=== PATIENT | male | born 1985 | race African-American/Black ===

== ENCOUNTER 2018-01-02 11:52 | Emergency (ER) | payer BC ==
[2018-01-02] MEDS ORDERED: Ondansetron INJ* 2 MG/ML VIAL IV ONE (13:01)
[2018-01-02] MEDS ORDERED: NS 0.9% 1000 ML* 2,000 ML IV ONE (13:01)
[2018-01-02] MEDS ORDERED: Ketorolac INJ* 30 MG/ML 1 ML VIAL IV PUSH ONE (13:01)
--- NOTE | 2018-01-02 13:05 | ED ---
Nausea/Vomiting/Diarrhea HPI - HPI Summary HPI Summary: 32-year-old male presents with diarrhea for the past 2 weeks. He states he has history of IBS. He states that today he started developing pain in his left lower quadrant and right side. He admits to nausea and vomiting. He has had his gallbladder and appendix removed. He history of GI issues. He was recently on a dose of penicillin for gonorrhea. He denies any pain with urination. He denies any flank pain. He denies any fever. Denies any cough. He denies any chest pain or shortness breath. He tried some Pepto-Bismol without relief. He has never had this pain before. He states the pain is constant but then it will get worse with sharp pain in his left lower quadrant. He states he did have bloody stools occasionally when it started. Blood stools has since resolved. patient drinks 4 times a week. - History of Current Complaint Chief Complaint: EDAbdPain Stated Complaint: ABD PAIN/NAUSEA Time Seen by Provider: 01/02/18 12:54 Pain Intensity: 9 - Allergies/Home Medications Allergies/Adverse Reactions: Allergies Allergy/AdvReac Type Severity Reaction Status Date / Time oxycodone Allergy Intermediate Itching Verified 01/02/18 13:05 PMH/Surg Hx/FS Hx/Imm Hx Endocrine/Hematology History: Denies: Hx Diabetes Cardiovascular History: Denies: Hx Hypertension, Hx Pacemaker/ICD History: Denies: Hx Renal Disease Musculoskeletal History: Reports: Other Musculoskeletal History - neck pain Sensory History: Denies: Hx Hearing Aid Neurological History: Reports: Other Neuro Impairments/Disorders - PAIN CLINIC PATIENT Psychiatric History: Reports: Hx Anxiety, Hx Depression, Hx Bipolar Disorder Denies: Hx Eating Disorder, Hx Panic Disorder - Surgical History Surgery Procedure, Year, and Place: APPENDECTOMY. CHOLECYSTECTOMY Infectious Disease History: No Infectious Disease History: Denies: History Other Infectious Disease, Traveled Outside the [place] in Last 30 Days - Family History Known Family History: Negative: Cardiac Disease, Hypertension, Blood Disorder - Social History Alcohol Use: Socially Substance Use Type: Reports: None Smoking Status (MU): Current Some Day Smoker Type: Cigarettes Amount Used/How Often: smokes socially, some days Have You Smoked in the Last Year: Yes Review of Systems Negative: Fever Negative: Chest Pain Negative: Shortness Of Breath Positive: Abdominal Pain, Vomiting, Diarrhea, Nausea All Other Systems Reviewed And Are Negative: Yes Physical Exam Triage Information Reviewed: Yes Vital Signs On Initial Exam: Initial Vitals Temp Pulse Resp BP Pulse Ox 97.8 F 72 20 151/93 99 01/02/18 12:06 01/02/18 12:06 01/02/18 12:06 01/02/18 12:06 01/02/18 12:06 Vital Signs Reviewed: Yes Appearance: Positive: Well-Appearing Skin: Positive: Warm, Dry Head/Face: Positive: Normal Head/Face Inspection Eyes: Positive: Normal, EOMI, ABDI, Conjunctiva Clear ENT: Positive: Normal ENT inspection, Pharynx normal, TMs normal Respiratory/Lung Sounds: Positive: Clear to Auscultation, Breath Sounds Present Cardiovascular: Positive: Normal, RRR Abdomen Description: Positive: Soft, Other: - diffuse tenderness greatest in LLQ Bowel Sounds: Positive: Present Musculoskeletal: Positive: Normal Neurological: Positive: Normal Psychiatric: Positive: Normal Diagnostics - Vital Signs Vital Signs Temp Pulse Resp BP Pulse Ox 01/02/18 12:06 97.8 F 72 20 151/93 99 - Laboratory Result Diagrams: 01/02/18 13:25 01/02/18 13:25 Lab Statement: Any lab studies that have been ordered have been reviewed, and results considered in the medical decision making process. - CT abd CT Interpretation: No Acute Changes - IMPRESSION: 1. NO EVIDENCE FOR ACUTE FINDING OR CAUSE FOR THE PATIENT'S ABDOMINAL PAIN IS SEEN. 2. POSSIBLE SOLID LESION WITHIN THE RIGHT KIDNEY VERSUS A COMPLEX CYST. RECOMMEND AN OUTPATIENT RENAL ULTRASOUND FOR FURTHER EVALUATION. 3. STATUS POST CHOLECYSTECTOMY AND APPENDECTOMY. CT Interpretation Completed By: Radiologist Re-Evaluation - Re-Evaluation First Eval Re-Evaluation Time: 15:02 Change: Improved Comment: pain is a little better but still diffusely present but seems to be more periumbilical now Naus/Vom/Diarrhea Course/Dx - Course Course Of Treatment: 32-year-old male presents with diarrhea for the past 2 weeks. He states he has history of IBS. He states that today he started developing pain in his left lower quadrant and right side. He admits to nausea and vomiting. He has had his gallbladder and appendix removed. He history of GI issues. He was recently on a dose of penicillin for gonorrhea. He denies any pain with urination. He denies any flank pain. He denies any fever. Denies any cough. He denies any chest pain or shortness breath. He tried some Pepto-Bismol without relief. He has never had this pain before. He states the pain is constant but then it will get worse with sharp pain in his left lower quadrant. He states he did have bloody stools occasionally when it started. Blood stools has since resolved. on exam tenderness diffuse tenderness greatest in LLQ. labs wbc normal. CT normal. lipase elevated but not 3 times upper limit. told to stop drinking and follow up with primary. will treat as potential pancreatatis with pain control and clear liquids until symptoms improve. patient understand and agrees with plan. - Differential Dx/Diagnosis Differential Diagnoses - Male: Diverticulosis, Gastroenteritis (Viral), Gastroenteritis (Bacterial) Provider Diagnoses: abodminal pain; nausea, vomiting, and diarrhea Condition At Discharge: Good Discharge - Sign-Out/Discharge Documenting (check all that apply): Discharge - Discharge Plan Condition: Good Disposition: HOME Prescriptions: Ondansetron ODT TAB* [Zofran 4 MG Odt TAB*] 4 mg PO Q6H PRN #20 tab.odt PRN Reason: Nausea Patient Education Materials: Acute Nausea and Vomiting (ED) Referrals: Charles Aguilar MD [Primary Care Provider] - Additional Instructions: Can take Zofran every 6 hours as needed for nausea Drink small amounts of fluid as tolerated clear liquids then progress to solids as symptoms improve When able to eat follow BRAT diet: Bananas, rice, applesauce, toast Take ibuprofen or Tylenol for pain as needed every 6 hours Follow up with primary within 5 days Return to ED if develop any new or worsening symptoms - Billing Disposition and Condition Condition: GOOD Disposition: HOME
[2018-01-02 13:36] LABS: ABS Basophils 0.1 10^3/ul (0-0.2); ABS Eosinophils 0.1 10^3/ul (0-0.6); ABS Lymphocytes 1.2 10^3/ul (1.0-4.8); ABS Monocytes 0.6 10^3/ul (0-0.8); ABS Neutrophils 7.4 10^3/ul (1.5-7.7); ABS Nucleated RBC 0 10^3/ul; Eosinophil % 0.7 % (0-6); Hematocrit 47 % (42-52); Hemoglobin 15.4 g/dl (14.0-18.0); Lymphocyte % 13.3 % (25-47); Mean Corpuscular HGB Conc 33 g/dl (31-36); Mean Corpuscular Hemoglobin 27 pg (27-31); Mean Corpuscular Volume 84 fL (80-94); Mean Platelet Volume 8.3 um3 (7.4-10.4); Nucleated Red Blood Cells % 0; Platelet Count 237 10^3/ul (150-450); Red Blood Count 5.62 10^6/ul (4.0-5.4); Red Cell Distribution Width 13 % (10.5-15); White Blood Count 9.3 10^3/ul (3.5-10.8)
[2018-01-02 13:54] LABS: EGFR Non-African American 91.9 (>60)
[2018-01-02] MEDS ORDERED: Iohexol 300* (CONTRAST) 10 ML SDV IV ONE (14:29)
[2018-01-02] MEDS ORDERED: Morphine INJ* 4 MG/ML 1 ML SYRINGE (NEW SYRINGE VERSION) IV ONE (14:48)
[2018-01-02 15:39] LABS: Urine Appearance Clear; Urine Blood Negative (Negative); Urine Color Straw; Urine Ketones Negative (Negative); Urine Protein Negative (Negative); Urine Urobilinogen Negative (Negative)
--- NOTE | 2018-01-02 15:45 | RAD ---
INDICATION: Left lower quadrant pain and diarrhea. COMPARISON: Comparison is made with a prior study from December 30, 2011. TECHNIQUE: A CT scan of the abdomen and pelvis was performed with intravenous and oral contrast following intravenous injection of 97 ml of Omnipaque 300 nonionic contrast. Contiguous axial sections were obtained from the lung bases through the symphysis pubis. Images were reconstructed in the coronal and sagittal planes. FINDINGS: There is mild dependent bilateral lower lobe subsegmental atelectasis. No pleural effusion is present. The liver and spleen are normal in size without significant focal abnormality. The patient is status post cholecystectomy. The pancreas appears to be within normal limits. The kidneys and adrenal glands are normal in size. No hydronephrosis is seen. There is a 1.3 cm cyst in the lower pole of the left kidney. There is a 1.2 x 0.8 cm hypodense lesion in the midportion of the right kidney which is not well seen on the delayed images suggesting the possibility of a solid lesion with enhancement. This also has a small dionisio of calcification within it. The aorta is normal in caliber and demonstrates homogeneous contrast opacification. No significant enlarged retroperitoneal lymph nodes are seen. The stomach, small and large bowel appear nondistended. The patient is status post appendectomy. There are scattered diverticuli within the colon. There is no evidence for diverticulitis or colitis. No free intraperitoneal air or fluid is seen. No significant focal osseous abnormality is seen. IMPRESSION: 1. NO EVIDENCE FOR ACUTE FINDING OR CAUSE FOR THE PATIENT'S ABDOMINAL PAIN IS SEEN. 2. POSSIBLE SOLID LESION WITHIN THE RIGHT KIDNEY VERSUS A COMPLEX CYST. RECOMMEND AN OUTPATIENT RENAL ULTRASOUND FOR FURTHER EVALUATION. 3. STATUS POST CHOLECYSTECTOMY AND APPENDECTOMY.
[2018-01-02 16:43] VITALS: BP 129/74
== END 2018-01-02 16:41 | disposition home or self-care (01) ==
LOC: ED 11:52
DX: R10.9 Unspecified abdominal pain (principal); R19.7 Diarrhea, unspecified; R11.2 Nausea with vomiting, unspecified; Z72.0 Tobacco use
CPT/HCPCS: 36415; 74177; 80053; 81003; 82150; 83690; 85025; 86141; 96374; 96375; 99282; J1885; J2270; J2405; Q9967

== ENCOUNTER 2018-08-17 10:02 | Emergency (ER) | payer BC ==
[2018-08-17] MEDS ORDERED: NS 0.9% 1000 ML* 1,000 ML IV ONE (10:24)
[2018-08-17] MEDS ORDERED: Ondansetron INJ* 2 MG/ML VIAL IV ONE (10:24)
[2018-08-17] MEDS ORDERED: Ketorolac INJ* 30 MG/ML 1 ML VIAL IV PUSH ONE (10:24)
[2018-08-17] MEDS ORDERED: Famotidine TAB* 20 MG PO ONE (11:18)
--- NOTE | 2018-08-17 11:32 | ED ---
Abdominal Pain/Male - HPI Summary HPI Summary: Pt is a 32 y/o male who presents to the ED c/o abdominal pain. He was recently diagnosed with hereditary chronic pancreatitis, so he always has intermittent abdominal pain. Hes had constant cramping 8/10 pain for the past 2-3 days, and also c/o N/V/D and mild back pain. Pt denies any fever or urinary symptoms. He plans on going to [place] for his pancreatitis soon, and takes pancreatic enzymes. Pt has been taking Ibuprofen for his pain. He occasionally drinks alcohol, but denies any recent alcohol use. - History of Current Complaint Chief Complaint: EDAbdPain Stated Complaint: ABD PAIN/NAUSEA Time Seen by Provider: 08/17/18 11:12 Hx Obtained From: Patient Onset/Duration: Gradual Onset, Lasting Days - 2-3, Still Present Timing: Constant Severity Currently: Severe Pain Intensity: 8 Pain Scale Used: 0-10 Numeric Location: Diffuse Radiates: Yes Radiates to: Back Associated Signs And Symptoms: Positive: Back Pain, Nausea, Vomiting, Diarrhea. Negative: Fever, Urinary Symptoms - Allergies/Home Medications Allergies/Adverse Reactions: Allergies Allergy/AdvReac Type Severity Reaction Status Date / Time oxycodone Allergy Intermediate Itching Verified 08/17/18 10:21 PMH/Surg Hx/FS Hx/Imm Hx Endocrine/Hematology History: Denies: Hx Diabetes Cardiovascular History: Denies: Hx Hypertension, Hx Pacemaker/ICD GI History: Reports: Other GI Disorders - Chronic pancreatitis History: Denies: Hx Renal Disease Musculoskeletal History: Reports: Other Musculoskeletal History - neck pain Sensory History: Denies: Hx Hearing Aid Neurological History: Reports: Other Neuro Impairments/Disorders - PAIN CLINIC PATIENT Psychiatric History: Reports: Hx Anxiety, Hx Depression, Hx Bipolar Disorder Denies: Hx Eating Disorder, Hx Panic Disorder - Surgical History Surgery Procedure, Year, and Place: APPENDECTOMY. CHOLECYSTECTOMY Infectious Disease History: No Infectious Disease History: Denies: History Other Infectious Disease, Traveled Outside the [place] in Last 30 Days - Family History Known Family History: Negative: Cardiac Disease, Hypertension, Blood Disorder - Social History Alcohol Use: Occasionally Hx Substance Use: No Substance Use Type: Reports: None Substance Use Comment - Amount & Last Used: daily Hx Tobacco Use: Yes Smoking Status (MU): Current Some Day Smoker Type: Cigarettes Amount Used/How Often: smokes socially, some days Have You Smoked in the Last Year: Yes Review of Systems Negative: Fever Positive: Abdominal Pain, Vomiting, Diarrhea, Nausea Genitourinary: Negative Positive: Myalgia - Back pain All Other Systems Reviewed And Are Negative: Yes Physical Exam - Summary Physical Exam Summary: Appearance: Well appearing, no pain distress Skin: warm, dry, reflects adequate perfusion Head/face: normal Eyes: EOMI, ABDI ENT: mucous membranes moist Neck: supple, non-tender Respiratory: CTA, breath sounds present Cardiovascular: RRR, pulses symmetrical Abdomen: soft, diffuse mild tenderness without guarding or rebound Bowel Sounds: present Musculoskeletal: normal, strength/ROM intact Neuro: normal, sensory motor intact, A&Ox3 Triage Information Reviewed: Yes Vital Signs On Initial Exam: Initial Vitals Temp Pulse Resp BP Pulse Ox 98.5 F 77 16 145/94 100 08/17/18 10:18 08/17/18 10:18 08/17/18 10:18 08/17/18 10:18 08/17/18 10:18 Vital Signs Reviewed: Yes Diagnostics - Vital Signs Vital Signs Temp Pulse Resp BP Pulse Ox 08/17/18 10:18 98.5 F 77 16 145/94 100 - Laboratory Result Diagrams: 08/17/18 11:15 08/17/18 11:15 Lab Statement: Any lab studies that have been ordered have been reviewed, and results considered in the medical decision making process. Re-Evaluation - Re-Evaluation First Eval Re-Evaluation Time: 13:24 Change: Improved Comment: Pt feels much better. Abdominal Pain Fem Course/Dx - Course Course Of Treatment: Patient with a history of chronic pancreatitis presents with epigastric pain. His pain was improved here with Toradol and GI treatment. His laboratories are normal including a normal lipase level. He was able to be discharged comfortable in good condition to follow up with his primary care physician. - Diagnoses Differential Diagnosis/HQI/PQRI: Pancreatitis, Peptic Ulcer Disease Provider Diagnoses: Gastritis, History of chronic pancreatitis, Epigastric pain Discharge - Sign-Out/Discharge Documenting (check all that apply): Patient Departure - Discharge - Discharge Plan Condition: Improved Disposition: HOME Prescriptions: Famotidine TAB* [Pepcid 20 MG TAB*] 20 mg PO BID #20 tab Hyoscyamine Sulfate [Levsin] 0.125 mg PO Q4H PRN #30 tablet PRN Reason: abdominal pain/cramping Pantoprazole TAB (NF) [Protonix TAB (NF)] 40 mg PO DAILY #30 tab Sucralfate TAB* [Carafate*] 1 gm PO ACHS #40 tab Patient Education Materials: Gastritis (ED) Referrals: Charles Aguilar MD [Primary Care Provider] - Additional Instructions: Silver diet. Avoid alcohol, ibuprofen, naproxen or related medications. Call your inspector filter tip from [facility] tomorrow to schedule prompt follow-up. Silver diet. Return if worse, fevers, uncontrolled pain, new symptoms or other concerns. - Billing Disposition and Condition Condition: IMPROVED Disposition: Home - Attestation Statements Document Initiated by Kushal: Yes Documenting Scribe: Jackie Steele Provider For Whom Kushal is Documenting (Include Credential): Robert Henderson MD Scribe Attestation: Jackie Martin scribed for Robert Henderson MD on 08/17/18 at 1904. Scribe Documentation Reviewed: Yes Provider Attestation: The documentation as recorded by the Jackie rand accurately reflects the service I personally performed and the decisions made by , Robert Henderson MD
[2018-08-17 11:39] LABS: ABS Basophils 0.1 10^3/ul (0-0.2); ABS Eosinophils 0.1 10^3/ul (0-0.6); ABS Lymphocytes 1.9 10^3/ul (1.0-4.8); ABS Monocytes 0.5 10^3/ul (0-0.8); ABS Neutrophils 3.1 10^3/ul (1.5-7.7); ABS Nucleated RBC 0 10^3/ul; Eosinophil % 1.9 % (0-6); Hematocrit 49 % (42-52); Hemoglobin 16.2 g/dl (14.0-18.0); Lymphocyte % 34.2 % (25-47); Mean Corpuscular HGB Conc 33 g/dl (31-36); Mean Corpuscular Hemoglobin 28 pg (27-31); Mean Corpuscular Volume 86 fL (80-94); Mean Platelet Volume 8.4 fL (7.4-10.4); Nucleated Red Blood Cells % 0.1; Platelet Count 217 10^3/ul (150-450); Red Blood Count 5.74 10^6/ul (4.00-5.40); Red Cell Distribution Width 14 % (10.5-15); White Blood Count 5.6 10^3/ul (3.5-10.8)
[2018-08-17 12:52] LABS: EGFR Non-African American 89.7 (>60)
[2018-08-17] MEDS ORDERED: Pantoprazole IV* 40 MG IV ONE (12:57)
[2018-08-17] MEDS ORDERED: Sucralfate TAB* 1 GM PO ONE (12:57)
[2018-08-17 14:33] VITALS: BP 144/80
== END 2018-08-17 14:35 | disposition home or self-care (01) ==
LOC: ED 10:02
DX: K29.70 Gastritis, unspecified, without bleeding (principal); K86.1 Other chronic pancreatitis; R10.13 Epigastric pain; Z88.5 Allergy status to narcotic agent; Z72.0 Tobacco use
CPT/HCPCS: 36415; 80053; 83690; 85025; 96374; 96375; 99282; A9270-GY; J1885; J2405